=== PATIENT | male | born 1970 | race Caucasian/White ===

== ENCOUNTER 2020-05-26 05:59 | Inpatient (IN) ==
[2020-05-26] MEDS: LACTATED RINGERS 1,000 ML IV SCH ×3 (06:38→16:00)
[2020-05-26] MEDS ORDERED: ONDANSETRON 4 MG/2 ML VIAL ONE ×4 (06:55→15:13)
[2020-05-26] MEDS: ONDANSETRON 4 MG/2 ML VIAL IV PRN ×2 (07:00→22:53)
[2020-05-26] MEDS ORDERED: PHENYLEPHRINE 1 MG/10 ML SYRINGE IV ONE ×2 (10:00→15:13)
[2020-05-26] MEDS ORDERED: LIDOCAINE 2% 5 ML VIAL ONE ×2 (10:00→15:13)
[2020-05-26] MEDS ORDERED: propofoL 200 MG/20 ML VIAL IV ONE ×2 (10:00→15:12)
[2020-05-26] MEDS ORDERED: ONDANSETRON 4 MG/2 ML VIAL IV PRN ×2 (11:15→15:13)
[2020-05-26] MEDS ORDERED: HYDROmorphone 2 MG/1 ML VIAL IV PRN (11:32)
[2020-05-26] MEDS: CIPROFLOXACIN INJ 400 MG in PREMIX 1 EACH IV SCH (12:26)
[2020-05-26 12:40] LABS: Basophils % 0.2 % (0.0-0.8); Hematocrit 29.8 VOL% (42.0-52.0); Hemoglobin 9.8 GM/DL (14.0-18.0); Immature Granulocytes Absolute 0.25 #; Lymphocytes # 0.7 10*3/uL (1.4-4.0); Mean Corpuscular HGB Conc 32.9 GM/DL (32-36); Mean Corpuscular Volume 104.2 FL (87-102); Mean Platelet Volume 10.2 FL (9.6-12.0); Monocytes % 3.7 % (1.7-12.7); NRBC # 0.02 10*3/uL; Neutrophils % 92.1 % (38.7-73.9); Platelet Count 337 T/CUMM (130-400); Red Blood Count 2.86 MC/CUMM (3.8-5.5); Red Cell Distribution Width 15.1 % (9.3-17.3); White Blood Count 24.6 T/CUMM (4-12)
[2020-05-26 12:51] LABS: INR 1.5; PT Patient Result 15.9 SECS (9.8-11.9)
[2020-05-26 13:19] LABS: Anisocytosis 1+; Band Neutrophils 7 % (0-10); Lymphocytes 1 % (20-55); Macrocytosis 1+; Platelet Estimate Normal; Polychromasia Few; Segmented Neutrophils 90 % (50-85); Target Cells Few; Total Cells Counted 100
[2020-05-26 13:20] LABS: Burr Cells 1+; Poikilocytosis 1+
[2020-05-26] MEDS: metroNIDAZOLE INJ 500 MG in PREMIX 1 EACH IV SCH ×2 (13:20→19:16)
[2020-05-26 13:25] LABS: Albumin 2.1 G/DL (3.4-5.0); Bilirubin,Total 1.6 MG/DL (0.2-1.0); Calcium 8.4 MG/DL (8.5-10.1); Osmolality,Calculated 267.1 MOS/KG (273-304); Total Protein 6.4 G/DL (6.4-8.3)
[2020-05-26] MEDS ORDERED: metroNIDAZOLE 500 MG/100 ML PREMIX IV ONE (13:33)
[2020-05-26] MEDS ORDERED: ALBUTEROL/IPRATROPIUM 3 ML NEB RESP TX ONE (15:05)
[2020-05-26] MEDS ORDERED: HYDROmorphone 2 MG/1 ML VIAL ONE (15:08)
[2020-05-26] MEDS: HYDROmorphone 2 MG/1 ML VIAL IV PRN ×6 (15:10→22:50)
[2020-05-26] MEDS ORDERED: DEXAMETHASONE 4 MG/1 ML VIAL ONE (15:13)
[2020-05-26] MEDS ORDERED: GLYCOPYRROLATE 0.4 MG/2 ML VIAL ONE (15:13)
[2020-05-26] MEDS ORDERED: MIDAZOLAM 2 MG/2 ML VIAL ONE (15:13)
[2020-05-26] MEDS ORDERED: fentaNYL 100 MCG/2 ML VIAL ONE (15:13)
[2020-05-26] MEDS ORDERED: NEOSTIGMINE 10 MG/10 ML VIAL ONE (15:14)
[2020-05-26] MEDS ORDERED: SEVOFLURANE 1 UNIT/15 MINUTE INH ONE (15:14)
[2020-05-26] MEDS ORDERED: ROCURONIUM 100 MG/10 ML VIAL IV ONE (15:14)
[2020-05-26] MEDS ORDERED: SUCCINYLCHOLINE 200 MG/10 ML VIAL ONE (15:14)
[2020-05-26] MEDS ORDERED: LACTATED RINGERS 2,000 ML IV ONE (15:14)
[2020-05-26] MEDS ORDERED: ACETAMINOPHEN 325 MG TABLET PO PRN (15:16)
[2020-05-26 15:44] LABS: Apearance,Urine CLEAR (Clear); Bilirubin,Urine Negative (Negative); Blood, Urine Negative (Negative); Glucose,Urine (UA) Negative (Negative); Ketones,Urine Negative (Negative); Mucus,Urine Occasional /LPF (Occasional); Nitrite,Urine Negative (Negative); Protein,Urine Negative; RBC,Urine 11 /HPF (0-4); Urine Color Amber (Yellow); Urine Specific Gravity 1.049 (1.001-1.035); Urine Urobilinogen < 2.0 EU/DL (0.2-1.0); WBC,Urine 1 /HPF (0-6)
[2020-05-26] MEDS: DEXTROSE 5% LACTATED RINGERS 1,000 ML IV SCH (17:27)
[2020-05-26] MEDS ORDERED: LORazepam 2 MG/1 ML VIAL IV PRN (18:34)
[2020-05-26] MEDS: KETOROLAC 15 MG/1 ML VIAL IV PRN (20:26)
[2020-05-26] MEDS: PANTOPRAZOLE 40 MG VIAL IV SCH (20:28)
[2020-05-27] MEDS: CIPROFLOXACIN INJ 400 MG in PREMIX 1 EACH IV SCH ×2 (01:01→13:05)
[2020-05-27] MEDS: metroNIDAZOLE INJ 500 MG in PREMIX 1 EACH IV SCH ×3 (01:58→14:08)
[2020-05-27] MEDS: HYDROmorphone 2 MG/1 ML VIAL IV PRN ×4 (01:58→22:04)
[2020-05-27] MEDS: DEXTROSE 5% LACTATED RINGERS 1,000 ML IV SCH ×3 (04:16→16:41)
[2020-05-27] MEDS: ONDANSETRON 4 MG/2 ML VIAL IV PRN (05:46)
[2020-05-27 07:23] LABS: Albumin 1.8 G/DL (3.4-5.0); Bilirubin,Total 1.2 MG/DL (0.2-1.0); Osmolality,Calculated 275.7 MOS/KG (273-304); Total Protein 5.4 G/DL (6.4-8.3)
[2020-05-27] MEDS: ALBUTEROL/IPRATROPIUM 3 ML NEB RESP TX PRN ×2 (07:35→11:41)
[2020-05-27] MEDS ORDERED: PHENOL 1.4% THROAT SPRAY 177 ML BOTTLE PO PRN (08:46)
[2020-05-27] MEDS: LACTATED RINGERS 1,000 ML IV SCH (08:50)
[2020-05-27] MEDS ORDERED: MAGNESIUM SULF RIDER 2 GM in PREMIX 1 EACH IV PRN (08:51)
[2020-05-27] MEDS ORDERED: MAGNESIUM SULF RIDER 4 GM in PREMIX 1 EACH IV PRN (08:51)
[2020-05-27] MEDS ORDERED: POTASSIUM CHLORIDE 20 MEQ TABLET PO PRN (08:51)
[2020-05-27 09:01] LABS: Basophils # 0.1 10*3/uL (0.0-0.2); Basophils % 0.2 % (0.0-0.8); Hemoglobin 9.6 GM/DL (14.0-18.0); Immature Granulocytes % 0.8 %; Immature Granulocytes Absolute 0.24 #; Lymphocytes # 0.7 10*3/uL (1.4-4.0); Lymphocytes % 2.2 % (21.2-54.2); Mean Corpuscular HGB Conc 33.1 GM/DL (32-36); Mean Corpuscular Volume 104.3 FL (87-102); Monocytes % 3.7 % (1.7-12.7); NRBC # 0.03 10*3/uL; Neutrophils % 93.1 % (38.7-73.9); Platelet Count 315 T/CUMM (130-400); Red Blood Count 2.78 MC/CUMM (3.8-5.5); Red Cell Distribution Width 15.1 % (9.3-17.3); White Blood Count 29.8 T/CUMM (4-12)
[2020-05-27] MEDS: PANTOPRAZOLE 40 MG VIAL IV SCH ×2 (09:26→21:01)
[2020-05-27 09:49] LABS: Band Neutrophils 4 % (0-10); Lymphocytes 3 % (20-55); Segmented Neutrophils 90 % (50-85); Total Cells Counted 100
[2020-05-27 09:50] LABS: Hypochromasia 1+; Macrocytosis 1+; Platelet Estimate Normal; Polychromasia Slight; Target Cells Slight
[2020-05-27 13:24] LABS: ABG Base Excess -1.9 MMOL/L (-2.5-2.5); ABG HCO3 22.7 MMOL/L (20-26); ABG Oxygen Saturation 90.2 % (95-100); ABG PH 7.402 (7.35-7.45); ABG TCO2 20.6 MMOL/L (23-27); Pt O2 Delivery Device Venturi Mask
[2020-05-27] MEDS: NICOTINE 14 MG/24 HR PATCH TRANSDERM SCH (15:09)
[2020-05-27] MEDS ORDERED: NOREPINEPHRINE 8 MG in SODIUM CHLORIDE 0.9% 242 ML IV PRN (16:15)
[2020-05-27] MEDS ORDERED: FUROSEMIDE 40 MG/4 ML VIAL IV ONE (16:15)
[2020-05-27] MEDS: POTASSIUM CHLORIDE RIDER 10 MEQ in PREMIX 1 EACH IV PRN ×4 (16:46→19:41)
[2020-05-27] MEDS: MEROPENEM 500 MG in SODIUM CHLORIDE 0.9% 100 ML IV SCH ×2 (16:48→23:04)
[2020-05-27] MEDS ORDERED: MEROPENEM 500 MG in SODIUM CHLORIDE 0.9% 100 ML IV SCH (17:00)
[2020-05-27] MEDS: VANCOMYCIN INJ 1,000 MG in SODIUM CHLORIDE 0.9% 250 ML IV SCH (17:42)
[2020-05-28] MEDS: HYDROmorphone 2 MG/1 ML VIAL IV PRN ×4 (02:03→13:09)
[2020-05-28 03:54] LABS: Basophils % 0.1 % (0.0-0.8); Hematocrit 27.1 VOL% (42.0-52.0); Hemoglobin 9.2 GM/DL (14.0-18.0); Immature Granulocytes Absolute 0.26 #; Lymphocytes # 0.8 10*3/uL (1.4-4.0); Lymphocytes % 3.1 % (21.2-54.2); Mean Corpuscular HGB Conc 33.9 GM/DL (32-36); Mean Corpuscular Volume 101.1 FL (87-102); Mean Platelet Volume 10.4 FL (9.6-12.0); NRBC # 0.03 10*3/uL; Neutrophils % 90.8 % (38.7-73.9); Platelet Count 257 T/CUMM (130-400); Red Blood Count 2.68 MC/CUMM (3.8-5.5); Red Cell Distribution Width 15.3 % (9.3-17.3)
[2020-05-28 04:10] LABS: Albumin 1.6 G/DL (3.4-5.0); Bilirubin,Total 1.5 MG/DL (0.2-1.0); Osmolality,Calculated 280.3 MOS/KG (273-304); Total Protein 5.1 G/DL (6.4-8.3)
[2020-05-28] MEDS: MEROPENEM 500 MG in SODIUM CHLORIDE 0.9% 100 ML IV SCH ×4 (04:54→23:15)
[2020-05-28 05:02] LABS: Hepatitis B Core IgM Quant 0.15 Index; Hepatitis B Surface Ag Quant < 0.10 Index; Hepatitis B Surface Ag Result Negative (Negative); Hepatitis C Virus Ab Quant 0.08 Index; Hepatitis C Virus Ab Result Negative (Negative)
[2020-05-28] MEDS: POTASSIUM CHLORIDE RIDER 10 MEQ in PREMIX 1 EACH IV PRN ×2 (05:08→06:36)
[2020-05-28] MEDS: VANCOMYCIN INJ 1,000 MG in SODIUM CHLORIDE 0.9% 250 ML IV SCH ×2 (05:39→18:29)
[2020-05-28 06:37] LABS: Band Neutrophils 2 % (0-10); Lymphocytes 5 % (20-55); Segmented Neutrophils 91 % (50-85); Total Cells Counted 100
[2020-05-28 06:38] LABS: Anisocytosis 1+; Platelet Estimate Normal
[2020-05-28 06:40] LABS: Macrocytosis 1+
[2020-05-28] MEDS: NICOTINE 14 MG/24 HR PATCH TRANSDERM SCH (08:18)
[2020-05-28] MEDS: PANTOPRAZOLE 40 MG VIAL IV SCH ×2 (08:18→21:19)
[2020-05-28] MEDS: THIAMINE 200 MG/2 ML VIAL IV SCH (08:19)
[2020-05-28] MEDS ORDERED: THIAMINE 200 MG/2 ML VIAL IV SCH (09:00)
[2020-05-28] MEDS ORDERED: FOLIC ACID INJ 1 MG in SYRINGE 1 EACH IV SCH (09:00)
[2020-05-28] MEDS: LACTATED RINGERS 1,000 ML IV SCH ×2 (11:30→21:19)
[2020-05-28] MEDS: FOLIC ACID INJ 1 MG in SYRINGE 1 EACH IV SCH (11:54)
[2020-05-28] MEDS ORDERED: FUROSEMIDE 40 MG/4 ML VIAL IV ONE (13:35)
[2020-05-28] MEDS: KETOROLAC 15 MG/1 ML VIAL IV PRN ×2 (15:35→21:23)
[2020-05-29 03:16] LABS: Basophils % 0.1 % (0.0-0.8); Hematocrit 28.1 VOL% (42.0-52.0); Hemoglobin 9.6 GM/DL (14.0-18.0); Immature Granulocytes % 0.6 %; Immature Granulocytes Absolute 0.12 #; Lymphocytes % 4.6 % (21.2-54.2); Mean Corpuscular HGB Conc 34.2 GM/DL (32-36); Mean Corpuscular Volume 99.6 FL (87-102); Mean Platelet Volume 10.8 FL (9.6-12.0); Monocytes % 5.5 % (1.7-12.7); NRBC # 0.05 10*3/uL; Neutrophils % 89.2 % (38.7-73.9); Platelet Count 226 T/CUMM (130-400); Red Blood Count 2.82 MC/CUMM (3.8-5.5); Red Cell Distribution Width 15.9 % (9.3-17.3); White Blood Count 20.7 T/CUMM (4-12)
[2020-05-29 04:13] LABS: Calcium 7.9 MG/DL (8.5-10.1); Osmolality,Calculated 278.5 MOS/KG (273-304)
[2020-05-29 04:35] LABS: Allen Test Positive; Pt O2 Delivery Device Venturi Mask
[2020-05-29 04:39] LABS: ABG HCO3 26.1 MMOL/L (20-26); ABG Oxygen Saturation 94.7 % (95-100); ABG PCO2 34.3 MM HG (35-48); ABG PO2 76.1 MM HG (80-95); ABG TCO2 27.2 MMOL/L (23-27)
[2020-05-29 04:48] LABS: Band Neutrophils 2 % (0-10); Hypochromasia 1+; Lymphocytes 3 % (20-55); Macrocytosis 1+; Polychromasia Slight; Promyelocytes 1 %; Segmented Neutrophils 93 % (50-85); Total Cells Counted 100
[2020-05-29] MEDS: KETOROLAC 15 MG/1 ML VIAL IV PRN ×2 (05:02→13:00)
[2020-05-29] MEDS: MEROPENEM 500 MG in SODIUM CHLORIDE 0.9% 100 ML IV SCH ×4 (05:04→23:00)
[2020-05-29] MEDS: VANCOMYCIN INJ 1,000 MG in SODIUM CHLORIDE 0.9% 250 ML IV SCH ×2 (06:08→18:43)
[2020-05-29] MEDS: LACTATED RINGERS 1,000 ML IV SCH ×2 (08:50→20:53)
[2020-05-29] MEDS: FOLIC ACID INJ 1 MG in SYRINGE 1 EACH IV SCH (09:16)
[2020-05-29] MEDS: NICOTINE 14 MG/24 HR PATCH TRANSDERM SCH (09:16)
[2020-05-29] MEDS: PANTOPRAZOLE 40 MG VIAL IV SCH ×2 (09:18→20:52)
[2020-05-29] MEDS: THIAMINE 200 MG/2 ML VIAL IV SCH (09:21)
[2020-05-29] MEDS ORDERED: LACTATED RINGERS 1,000 ML IV ONE (10:42)
[2020-05-29] MEDS: ENOXAPARIN 40 MG/0.4 ML SYRINGE SUBCUT SCH ×2 (12:43→13:00)
[2020-05-29] MEDS: HYDROmorphone 2 MG/1 ML VIAL IV PRN (16:21)
[2020-05-30] MEDS: LACTATED RINGERS 1,000 ML IV SCH ×2 (04:05→13:15)
[2020-05-30] MEDS: MEROPENEM 500 MG in SODIUM CHLORIDE 0.9% 100 ML IV SCH ×4 (04:12→22:40)
[2020-05-30] MEDS: VANCOMYCIN INJ 1,000 MG in SODIUM CHLORIDE 0.9% 250 ML IV SCH (05:50)
[2020-05-30 06:50] LABS: Basophils % 0.1 % (0.0-0.8); Eosinophils # 0.1 10*3/uL (0.0-0.87); Eosinophils % 0.5 % (0.00-10.9); Hematocrit 26.3 VOL% (42.0-52.0); Immature Granulocytes Absolute 0.19 #; Lymphocytes % 5.3 % (21.2-54.2); Mean Corpuscular HGB Conc 34.2 GM/DL (32-36); Mean Platelet Volume 10.9 FL (9.6-12.0); Monocytes % 6.1 % (1.7-12.7); NRBC # 0.04 10*3/uL; Platelet Count 176 T/CUMM (130-400); Red Blood Count 2.63 MC/CUMM (3.8-5.5); Red Cell Distribution Width 16.5 % (9.3-17.3); White Blood Count 19.2 T/CUMM (4-12)
[2020-05-30 07:42] LABS: Albumin 1.5 G/DL (3.4-5.0); Bilirubin,Total 1.6 MG/DL (0.2-1.0); Calcium 8.1 MG/DL (8.5-10.1); Osmolality,Calculated 286.1 MOS/KG (273-304); Total Protein 5.1 G/DL (6.4-8.3)
[2020-05-30] MEDS: DEXTROSE 5% LACTATED RINGERS 1,000 ML IV SCH ×3 (08:03→12:37)
[2020-05-30] MEDS: POLYETHYLENE GLYCOL POWDER 17 GM PACK PO SCH ×3 (09:46→21:10)
[2020-05-30] MEDS: NICOTINE 14 MG/24 HR PATCH TRANSDERM SCH (09:57)
[2020-05-30] MEDS: PANTOPRAZOLE 40 MG VIAL IV SCH ×2 (09:58→21:11)
[2020-05-30] MEDS: THIAMINE 200 MG/2 ML VIAL IV SCH (09:58)
[2020-05-30] MEDS: FOLIC ACID INJ 1 MG in SYRINGE 1 EACH IV SCH (09:59)
[2020-05-30] MEDS: HYDROmorphone 2 MG/1 ML VIAL IV PRN (10:43)
[2020-05-30] MEDS: ENOXAPARIN 40 MG/0.4 ML SYRINGE SUBCUT SCH (13:14)
[2020-05-30] MEDS ORDERED: FUROSEMIDE 20 MG/2 ML VIAL IV ONE (16:19)
[2020-05-31] MEDS: MEROPENEM 500 MG in SODIUM CHLORIDE 0.9% 100 ML IV SCH ×4 (05:20→22:51)
[2020-05-31 06:08] LABS: Basophils % 0.2 % (0.0-0.8); Eosinophils # 0.2 10*3/uL (0.0-0.87); Eosinophils % 1.3 % (0.00-10.9); Hematocrit 26.1 VOL% (42.0-52.0); Immature Granulocytes % 0.8 %; Immature Granulocytes Absolute 0.16 #; Lymphocytes # 0.9 10*3/uL (1.4-4.0); Lymphocytes % 4.7 % (21.2-54.2); Mean Corpuscular HGB Conc 34.5 GM/DL (32-36); Mean Corpuscular Volume 98.9 FL (87-102); Mean Platelet Volume 11.1 FL (9.6-12.0); NRBC # 0.05 10*3/uL; Platelet Count 151 T/CUMM (130-400); Red Blood Count 2.64 MC/CUMM (3.8-5.5); Red Cell Distribution Width 16.8 % (9.3-17.3)
[2020-05-31 06:32] LABS: Eosinophils 2 % (0-10); Hypochromasia 1+; Lymphocytes 1 % (20-55); Platelet Estimate Adequate; Segmented Neutrophils 92 % (50-85); Target Cells Slight; Total Cells Counted 100
[2020-05-31] MEDS: PANTOPRAZOLE 40 MG VIAL IV SCH ×2 (09:05→22:52)
[2020-05-31] MEDS: THIAMINE 200 MG/2 ML VIAL IV SCH (09:06)
[2020-05-31] MEDS: POLYETHYLENE GLYCOL POWDER 17 GM PACK PO SCH ×3 (09:06→22:52)
[2020-05-31] MEDS: FOLIC ACID INJ 1 MG in SYRINGE 1 EACH IV SCH (09:07)
[2020-05-31] MEDS: NICOTINE 14 MG/24 HR PATCH TRANSDERM SCH (09:08)
[2020-05-31] MEDS: ENOXAPARIN 40 MG/0.4 ML SYRINGE SUBCUT SCH (11:21)
[2020-05-31] MEDS: HYDROmorphone 2 MG/1 ML VIAL IV PRN (14:41)
[2020-06-01 05:38] LABS: Basophils % 0.1 % (0.0-0.8); Eosinophils # 0.4 10*3/uL (0.0-0.87); Eosinophils % 2.2 % (0.00-10.9); Hemoglobin 9.1 GM/DL (14.0-18.0); Immature Granulocytes % 0.8 %; Immature Granulocytes Absolute 0.14 #; Lymphocytes # 1.1 10*3/uL (1.4-4.0); Lymphocytes % 6.2 % (21.2-54.2); Mean Corpuscular HGB Conc 33.7 GM/DL (32-36); Mean Corpuscular Volume 100.4 FL (87-102); Mean Platelet Volume 11.2 FL (9.6-12.0); Monocytes % 6.9 % (1.7-12.7); NRBC # 0.05 10*3/uL; Neutrophils % 83.8 % (38.7-73.9); Platelet Count 133 T/CUMM (130-400); Red Blood Count 2.69 MC/CUMM (3.8-5.5); Red Cell Distribution Width 17.1 % (9.3-17.3); White Blood Count 18.4 T/CUMM (4-12)
[2020-06-01 05:57] LABS: Hypochromasia 1+
[2020-06-01 05:58] LABS: Platelet Estimate Normal
[2020-06-01] MEDS: MEROPENEM 500 MG in SODIUM CHLORIDE 0.9% 100 ML IV SCH ×4 (06:28→22:18)
[2020-06-01] MEDS: FOLIC ACID INJ 1 MG in SYRINGE 1 EACH IV SCH (09:48)
[2020-06-01] MEDS: POLYETHYLENE GLYCOL POWDER 17 GM PACK PO SCH ×3 (09:49→21:22)
[2020-06-01] MEDS: NICOTINE 14 MG/24 HR PATCH TRANSDERM SCH (09:49)
[2020-06-01] MEDS: THIAMINE 200 MG/2 ML VIAL IV SCH (09:50)
[2020-06-01] MEDS: PANTOPRAZOLE 40 MG VIAL IV SCH ×2 (09:50→21:22)
[2020-06-01] MEDS: HYDROmorphone 2 MG/1 ML VIAL IV PRN (14:03)
[2020-06-02] MEDS: MEROPENEM 500 MG in SODIUM CHLORIDE 0.9% 100 ML IV SCH ×2 (04:39→11:01)
[2020-06-02 08:07] LABS: Basophils % 0.2 % (0.0-0.8); Eosinophils # 0.3 10*3/uL (0.0-0.87); Eosinophils % 1.3 % (0.00-10.9); Hematocrit 29.3 VOL% (42.0-52.0); Hemoglobin 9.7 GM/DL (14.0-18.0); Immature Granulocytes % 0.8 %; Immature Granulocytes Absolute 0.21 #; Lymphocytes # 1.2 10*3/uL (1.4-4.0); Lymphocytes % 4.6 % (21.2-54.2); Mean Corpuscular HGB Conc 33.1 GM/DL (32-36); Mean Corpuscular Volume 103.2 FL (87-102); Mean Platelet Volume 11.2 FL (9.6-12.0); Monocytes % 6.3 % (1.7-12.7); NRBC # 0.02 10*3/uL; Neutrophils % 86.8 % (38.7-73.9); Platelet Count 151 T/CUMM (130-400); Red Blood Count 2.84 MC/CUMM (3.8-5.5); Red Cell Distribution Width 17.1 % (9.3-17.3); White Blood Count 25.2 T/CUMM (4-12)
[2020-06-02 08:34] LABS: Lymphocytes 4 % (20-55); Platelet Estimate Adequate; Segmented Neutrophils 93 % (50-85); Total Cells Counted 100
[2020-06-02 08:35] LABS: Hypochromasia 1+
[2020-06-02] MEDS ORDERED: DIAZEPAM 5 MG TABLET PO ONE (08:50)
[2020-06-02] MEDS: NICOTINE 14 MG/24 HR PATCH TRANSDERM SCH (09:02)
[2020-06-02] MEDS: THIAMINE 200 MG/2 ML VIAL IV SCH (09:03)
[2020-06-02] MEDS: PANTOPRAZOLE 40 MG VIAL IV SCH ×2 (09:03→20:56)
[2020-06-02] MEDS: POLYETHYLENE GLYCOL POWDER 17 GM PACK PO SCH (09:03)
[2020-06-02] MEDS: FOLIC ACID INJ 1 MG in SYRINGE 1 EACH IV SCH (11:00)
[2020-06-02] MEDS: metroNIDAZOLE INJ 500 MG in PREMIX 1 EACH IV SCH ×4 (12:19→23:32)
[2020-06-02 18:58] LABS: Apearance,Urine CLEAR (Clear); Bilirubin,Urine Negative (Negative); Blood, Urine Negative (Negative); Glucose,Urine (UA) 50 mg/dL (Negative); Ketones,Urine 20 mg/dL (Negative); Mucus,Urine Few /LPF (Occasional); Nitrite,Urine Negative (Negative); Protein,Urine 30 MG/DL; RBC,Urine 1 /HPF (0-4); Urine Color Amber (Yellow); Urine Specific Gravity 1.024 (1.001-1.035); WBC,Urine 3 /HPF (0-6)
[2020-06-03] MEDS: metroNIDAZOLE INJ 500 MG in PREMIX 1 EACH IV SCH ×2 (05:17→11:18)
[2020-06-03 05:34] LABS: Basophils % 0.2 % (0.0-0.8); Eosinophils # 0.5 10*3/uL (0.0-0.87); Eosinophils % 2.4 % (0.00-10.9); Hematocrit 27.9 VOL% (42.0-52.0); Hemoglobin 9.2 GM/DL (14.0-18.0); Immature Granulocytes % 0.9 %; Lymphocytes # 1.3 10*3/uL (1.4-4.0); Lymphocytes % 5.6 % (21.2-54.2); Mean Corpuscular Volume 102.2 FL (87-102); Mean Platelet Volume 11.8 FL (9.6-12.0); Monocytes % 5.4 % (1.7-12.7); Neutrophils % 85.5 % (38.7-73.9); Platelet Count 149 T/CUMM (130-400); Red Blood Count 2.73 MC/CUMM (3.8-5.5); Red Cell Distribution Width 16.7 % (9.3-17.3); White Blood Count 22.8 T/CUMM (4-12)
[2020-06-03 06:05] LABS: Albumin 1.5 G/DL (3.4-5.0); Bilirubin,Total 1.1 MG/DL (0.2-1.0); Calcium 7.8 MG/DL (8.5-10.1); Osmolality,Calculated 276.8 MOS/KG (273-304); Total Protein 5.2 G/DL (6.4-8.3)
[2020-06-03] MEDS: POTASSIUM CHLORIDE 20 MEQ TABLET PO PRN ×2 (08:59→11:18)
[2020-06-03] MEDS: THIAMINE 200 MG/2 ML VIAL IV SCH (09:00)
[2020-06-03] MEDS ORDERED: POLYETHYLENE GLYCOL POWDER 17 GM PACK PO SCH (09:00)
[2020-06-03] MEDS: NICOTINE 14 MG/24 HR PATCH TRANSDERM SCH (09:01)
[2020-06-03] MEDS: PANTOPRAZOLE 40 MG VIAL IV SCH (09:01)
[2020-06-03] MEDS: FOLIC ACID INJ 1 MG in SYRINGE 1 EACH IV SCH (09:01)
[2020-06-03 11:21] VITALS: BP 98/67
[2020-06-03 11:50] LABS: Hypochromasia 2+; Microcytosis 1+; Platelet Estimate Adequate; Segmented Neutrophils 100 % (50-85); Target Cells 1+; Total Cells Counted 100
[2020-06-03 11:51] LABS: Smudge Cells Few
== END 2020-06-03 11:37 | DRG 907 ==
LOC: N.GILAB 05:59 → N.4E 11:15 → SUATTDRO 11:15 → N.ICU 05-27 16:08 → N.3E 05-29 14:52
PROVIDERS: ADMIT Internal Medicine Gastroenterology; ATTEND Internal Medicine